=== PATIENT | male | born 1995 | race Caucasian/White ===

== ENCOUNTER 2020-10-25 20:35 | Inpatient (IN) | payer OTHER ==
[~2020-10-25] VITALS: Ht 172.7 cm; Wt 91.0 kg
[2020-10-25 22:34] LABS: BASOPHILS % (AUTO) 0.8 % (0.0-2.0); EOSINOPHILS % (AUTO) 1.4 % (1.0-6.0); HEMATOCRIT 43.8 % (41-53); LYMPHOCYTES # (AUTO) 1.8 K/uL (1.0-4.8); LYMPHOCYTES % (AUTO) 31.3 % (22.0-44.0); MEAN CORPUSCULAR HEMOGLOBIN 33.4 pg (26.0-34.0); MEAN CORPUSCULAR HGB CONC 34.3 G/dL (31.0-37.0); MEAN CORPUSCULAR VOLUME 97 fL (80-100); MONOCYTES # (AUTO) 0.5 K/uL (0.1-1.0); MONOCYTES % (AUTO) 9.1 % (2.0-9.0); NEUTROPHILS # (AUTO) 3.2 K/uL (1.8-7.7); NEUTROPHILS % (AUTO) 57.4 % (40.0-70.0); PLATELET COUNT (AUTO) 321 K/uL (150-450); RED BLOOD CELL COUNT(AUTO) 4.49 MIL/uL (4.50-5.90); RED CELL DISTRIBUTION WIDTH 12.9 % (11.5-14.5)
[2020-10-25 22:46] LABS: ANION GAP 7 mmol/L (8-16); CALCIUM, TOTAL 9.1 mg/dL (8.8-10.5); CARBON DIOXIDE 27 mmol/L (22-29); CHLORIDE 103 mmol/L (98-107); CREATININE 0.64 mg/dL (0.60-1.30); GLOMERULAR FILTR. RATE CALC > 60 mL/min (>60); GLUCOSE,RANDOM 99 mg/dL (70-110); POTASSIUM 3.6 mmol/L (3.5-5.1); SODIUM SERUM 137 mmol/L (136-145); UREA NITROGEN, BLOOD 8 mg/dL (7-18)
[2020-10-25 22:53] LABS: ALANINE AMINOTRANSFERASE 207 U/L (12-78); ALBUMIN 4.2 g/dL (3.4-5.0); ALKALINE PHOSPHATASE 50 U/L (46-116); ASPARTATE AMINOTRANSFERASE 52 U/L (15-37); BILIRUBIN,TOTAL 0.4 mg/dL (0.1-1.0); TOTAL PROTEIN, SERUM 8.5 g/dL (6.4-8.2)
[2020-10-25] MEDS ORDERED: ACET-3385 PO (23:22)
[2020-10-25] MEDS ORDERED: BACL10TA PO (23:22)
[2020-10-25] MEDS ORDERED: COLL226C TP (23:22)
[2020-10-26] MEDS ORDERED: IPRATROPIUM BROMIDE 0.5 MG/2.5 ML NEB SOLUTION NEB PRN
[2020-10-26] MEDS ORDERED: ALBUTEROL SULFATE 2.5 MG/0.5 ML NEB SOLUTION NEB PRN
[2020-10-26] MEDS ORDERED: BISACODYL 10 MG RECTAL RECTAL SUPPOSITORY PR PRN
[2020-10-26] MEDS ORDERED: ONDANSETRON HCL 4 MG/2 ML VIAL IVP PRN
[2020-10-26] MEDS ORDERED: ACETAMINOPHEN 325 MG TABLET PO PRN
[2020-10-26] MEDS ORDERED: MAGNESIUM HYDROXIDE SUSPENSION 30 ML UDCUP PO PRN
[2020-10-26 01:20] VITALS: BP 138/83
[2020-10-26] MEDS ORDERED: LORazepam 2 MG/ML VIAL IM ONE (08:00)
[2020-10-26] MEDS ORDERED: HALOPERIDOL LACTATE 5 MG/ML VIAL IM ONE (08:00)
[2020-10-26] MEDS: HEPARIN SODIUM,PORCINE 5,000 UNITS/ML VIAL SQ SCH ×3 (08:00→15:19)
[2020-10-26] MEDS ORDERED: DiphenhydrAMINE HCL 50 MG/ML VIAL IM ONE (08:00)
[2020-10-26 08:43] VITALS: BP 134/79
[2020-10-26] MEDS: DOCUSATE SODIUM 100 MG CAPSULE PO SCH ×2 (09:05→20:37)
[2020-10-26 20:30] VITALS: BP 91/56
[2020-10-26] MEDS: ZOLPIDEM TARTRATE 5 MG TABLET PO PRN (21:17)
[2020-10-26 23:55] LABS: AMPHET/METH SCREEN,URINE NEGATIVE (NEGATIVE); BARBITURATE SCREEN, URINE NEGATIVE (NEGATIVE); BENZODIAZEPINES SCREEN,URINE NEGATIVE (NEGATIVE); CANNABINOID SCREEN,URINE NEGATIVE (NEGATIVE); COCAINE SCREEN,URINE NEGATIVE (NEGATIVE); METHADONE SCREEN, URINE NEGATIVE (NEGATIVE); OPIATE SCREEN,URINE NEGATIVE (NEGATIVE)
[2020-10-26 23:56] LABS: PHENCYCLIDINE SCREEN,URINE NEGATIVE (NEGATIVE)
[2020-10-27 08:00] VITALS: BP 110/67
[2020-10-27] MEDS: HEPARIN SODIUM,PORCINE 5,000 UNITS/ML VIAL SQ SCH ×3 (08:00→15:23)
[2020-10-27] MEDS: DOCUSATE SODIUM 100 MG CAPSULE PO SCH ×2 (08:13→21:00)
[2020-10-27] MEDS ORDERED: HALOPERIDOL LACTATE 5 MG/ML VIAL IM ONE (09:45)
[2020-10-27] MEDS ORDERED: LORazepam 2 MG/ML VIAL IM ONE (09:45)
[2020-10-27] MEDS ORDERED: DiphenhydrAMINE HCL 50 MG/ML VIAL IM ONE (09:45)
[2020-10-27] MEDS: OLANZapine 10 MG TABLET PO SCH (21:00)
[2020-10-28 06:51] VITALS: BP 104/68
[2020-10-28] MEDS: HEPARIN SODIUM,PORCINE 5,000 UNITS/ML VIAL SQ SCH ×3 (08:00→16:00)
[2020-10-28] MEDS: DOCUSATE SODIUM 100 MG CAPSULE PO SCH ×2 (08:49→20:34)
[2020-10-28] MEDS: OLANZapine 10 MG TABLET PO SCH ×2 (08:49→20:34)
[2020-10-28] MEDS ORDERED: HALOPERIDOL LACTATE 5 MG/ML VIAL IM ONE (10:30)
[2020-10-28] MEDS ORDERED: LORazepam 2 MG/ML VIAL IM ONE (10:30)
[2020-10-28] MEDS ORDERED: DiphenhydrAMINE HCL 50 MG/ML VIAL IM ONE (10:30)
[2020-10-28] MEDS ORDERED: DiphenhydrAMINE HCL 50 MG/ML VIAL ONE (10:33)
[2020-10-28] MEDS ORDERED: HALOPERIDOL LACTATE 5 MG/ML VIAL ONE (10:33)
[2020-10-28] MEDS ORDERED: LORazepam 2 MG/ML VIAL ONE (10:34)
[2020-10-28 19:21] VITALS: BP 114/66
[2020-10-28] MEDS: ZOLPIDEM TARTRATE 5 MG TABLET PO PRN (20:34)
[2020-10-29] MEDS: HEPARIN SODIUM,PORCINE 5,000 UNITS/ML VIAL SQ SCH ×4 (08:00→23:10)
[2020-10-29 08:01] VITALS: BP 117/56
[2020-10-29] MEDS: OLANZapine 10 MG TABLET PO SCH ×2 (08:52→19:37)
[2020-10-29] MEDS: DOCUSATE SODIUM 100 MG CAPSULE PO SCH ×2 (08:52→19:37)
[2020-10-29] MEDS: QUEtiapine FUMARATE 25 MG TABLET PO PRN (18:20)
[2020-10-29 19:36] VITALS: BP 117/75
[2020-10-29] MEDS: ZOLPIDEM TARTRATE 5 MG TABLET PO PRN (19:37)
[2020-10-30] MEDS: ZOLPIDEM TARTRATE 5 MG TABLET PO PRN (00:09)
[2020-10-30] MEDS: QUEtiapine FUMARATE 25 MG TABLET PO PRN ×3 (00:09→09:03)
[2020-10-30] MEDS ORDERED: DiphenhydrAMINE HCL 50 MG/ML VIAL IM ONE (02:15)
[2020-10-30] MEDS ORDERED: HALOPERIDOL LACTATE 5 MG/ML VIAL IM ONE (02:15)
[2020-10-30] MEDS ORDERED: LORazepam 2 MG/ML VIAL IM ONE (02:15)
[2020-10-30 07:16] VITALS: BP 102/62
[2020-10-30] MEDS: HEPARIN SODIUM,PORCINE 5,000 UNITS/ML VIAL SQ SCH ×3 (08:00→23:38)
[2020-10-30] MEDS: DOCUSATE SODIUM 100 MG CAPSULE PO SCH ×2 (09:03→21:00)
[2020-10-30] MEDS: OLANZapine 10 MG TABLET PO SCH ×2 (09:03→21:00)
[2020-10-30] MEDS: DIVALPROEX SODIUM 500 MG DR TABLET PO SCH ×2 (09:05→21:00)
[2020-10-30] MEDS ORDERED: LORazepam 2 MG/ML VIAL ONE (14:40)
[2020-10-30] MEDS ORDERED: HALOPERIDOL LACTATE 5 MG/ML VIAL ONE (14:41)
[2020-10-30] MEDS ORDERED: DiphenhydrAMINE HCL 50 MG/ML VIAL ONE (14:41)
[2020-10-31] MEDS: HEPARIN SODIUM,PORCINE 5,000 UNITS/ML VIAL SQ SCH ×2 (08:00→15:57)
[2020-10-31 08:10] VITALS: BP 112/72
[2020-10-31] MEDS: DOCUSATE SODIUM 100 MG CAPSULE PO SCH ×2 (09:00→20:04)
[2020-10-31] MEDS: DIVALPROEX SODIUM 500 MG DR TABLET PO SCH ×2 (09:54→20:05)
[2020-10-31] MEDS: OLANZapine 10 MG TABLET PO SCH (09:54)
[2020-10-31] MEDS: HALOPERIDOL 5 MG TABLET PO PRN (09:55)
[2020-10-31] MEDS: QUEtiapine FUMARATE 25 MG TABLET PO PRN (13:46)
[2020-10-31 19:08] VITALS: BP 111/65
[2020-10-31] MEDS: OLANZapine 10 MG RAPDIS TABLET PO SCH (20:07)
[2020-11-01 07:26] VITALS: BP 116/70
[2020-11-01] MEDS: HEPARIN SODIUM,PORCINE 5,000 UNITS/ML VIAL SQ SCH ×3 (08:00→15:42)
[2020-11-01] MEDS: DOCUSATE SODIUM 100 MG CAPSULE PO SCH (08:16)
[2020-11-01] MEDS: OLANZapine 10 MG RAPDIS TABLET PO SCH (08:30)
[2020-11-01] MEDS: DIVALPROEX SODIUM 500 MG DR TABLET PO SCH (08:31)
[2020-11-01] MEDS: HALOPERIDOL 5 MG TABLET PO PRN (14:13)
[2020-11-01] MEDS ORDERED: DIVA-112 PO (15:13)
[2020-11-01] MEDS ORDERED: OLAN10TA74 PO (15:13)
[2020-11-01] MEDS: QUEtiapine FUMARATE 25 MG TABLET PO PRN (15:34)
[2020-11-01 16:00] VITALS: BP 115/72
== END 2020-11-01 18:55 | DRG 885 ==
LOC: EMS 20:38 → 5S 23:00 → 6S 10-26 08:35
PROVIDERS: ADMIT Hospitalist; ATTEND Hospitalist
DX: F25.0 Schizoaffective disorder, bipolar type (principal); R45.851 Suicidal ideations; R45.87 Impulsiveness; F41.9 Anxiety disorder, unspecified
CPT/HCPCS: 80053; 85025; 99285; G0480; J1200; J1630; J1644; J2060